=== PATIENT | female | born 1965 | race Caucasian/White ===

== ENCOUNTER → 2022-04-28 09:29 | Outpatient (BNVA) | payer OTHER, SELFPAY | PROVIDERS: PCP Physician Assistant Medical; Visit Provider Hospitalist | DX: R91.1 Solitary pulmonary nodule (principal); J90 Pleural effusion, not elsewhere classified; J18.0 Bronchopneumonia, unspecified organism; J44.9 Chronic obstructive pulmonary disease, unspecified | CPT/HCPCS: 94640 ==

== ENCOUNTER 2022-04-28 10:43 | Outpatient (REF) | payer OTHER, SELFPAY | END 2022-04-28 10:44 | disposition home or self-care (01) | LOC: HO.LNP 10:43 | PROVIDERS: Visit Provider Hospitalist | DX: R91.1 Solitary pulmonary nodule (principal); J18.0 Bronchopneumonia, unspecified organism; J90 Pleural effusion, not elsewhere classified; J44.9 Chronic obstructive pulmonary disease, unspecified | CPT/HCPCS: 87070; 87116; 87205; 87206 ==

== ENCOUNTER 2022-05-10 08:23 | Outpatient (REF) | payer OTHER, SELFPAY ==
--- NOTE | ~2022-05-10 | PE_ITS ---
EXAMINATION: Fluorine-18 FDG PET/CT Scan CLINICAL INDICATION: Initial treatment management. Pulmonary nodule, diagnosis. PROCEDURE: 71 minutes following the intravenous administration of 14.8 mCi of fluorine 18 FDG, images from the base of the skull to the mid thighs were obtained using a combined PET/CT scanner with CT scan based attenuation correction. No oral contrast was administered. No intravenous contrast was administered. Transverse, coronal, sagittal, and volume reconstruction projections were obtained. The patient's blood glucose as determined by a finger stick, was 108 mg/dl immediately prior to injection. Total CT exam dose-length product 581.34 mGy-cm * These CT images were obtained using dose optimization techniques as appropriate, variously including the following: Automated exposure control * Adjustment of mA and/or kV according to patient size (this includes techniques or standardized protocols for targeted exams where dose is matched to indication/reason for exam; i.e. extremities or head) * Use of iterative reconstruction technique COMPARISON: No previous PET/CT scan is available for comparison. The report of a prior CT scan of the chest performed at [facility] dated 04/12/2022 is available but the images from that study are not available for comparison. FINDINGS: (Slice numbers described in this report are numbered superiorly to inferiorly with slice #1 in the head) NECK AND VISUALIZED HEAD: No foci of abnormal FDG activity are noted. The distribution of FDG activity is physiological. There is no cervical lymphadenopathy. THORAX: A 0.5 cm right upper lobe nodule abutting the horizontal fissure is visualized, slice 247/813 period, and this is much too small to be characterized on the FDG PET images. There is some mild scarring or atelectasis in the lung bases bilaterally and a posterior pleural-based 0.5 cm calcified granuloma is visualized, slice 293/813. An additional 1.2 cm groundglass opacity in the right upper lobe described on the report of the 04/12/[address] scan is not definitely apparent on these nondiagnostic CT images, nor are any additional suspicious nodules present. There are no foci of abnormal FDG activity within the chest. There is no pleural or pericardial fluid, or pneumothorax. There is no mediastinal, supraclavicular, or axillary lymphadenopathy. ABDOMEN AND PELVIS: There are no foci of abnormal FDG activity in the abdomen or pelvis. There is mild FDG activity throughout the gastrointestinal tract without a suspicious focal component. There is diverticulosis without evidence of diverticulitis. The hollow viscera are otherwise unremarkable. The liver, gallbladder, spleen, kidneys, adrenal glands and pancreas are unremarkable. The pelvic organs are unremarkable. There is no retroperitoneal, mesenteric, pelvic or inguinal lymphadenopathy. MUSCULOSKELETAL: There is an FDG avid fracture in the lateral aspect of the right sixth rib and minimally increased FDG activity in an adjacent right seventh rib fracture. No other foci of abnormal FDG activity are present in the osseous structures. There are degenerative changes in the spine and disc fusion hardware is present at L4-L5 with no associated abnormal FDG activity. VASCULAR: No significant abnormalities are present. PET/PET CT fusion skull to thigh IMPRESSION: 1. A 0.5 cm right upper lobe nodule abutting the horizontal fissure is too small to be characterized on the FDG PET images. 2. A groundglass opacity described in the report of the 04/12/[address] scan is not definitely visualized on these nondiagnostic CT images. There is no abnormal FDG activity at any site in the lungs. 3. Follow-up of the findings described above with diagnostic CT imaging in 3 months is recommended. 4. Right sixth and seventh rib fractures are visualized. The FDG activity in the right sixth rib fracture indicates it is recent. 5. No additional abnormalities suspicious for metastatic or other malignant lesions are noted.
== END 2022-05-10 08:24 | disposition home or self-care (01) ==
LOC: HO.PET 08:23
PROVIDERS: PCP Physician Assistant Medical; Visit Provider Hospitalist
DX: Z13.89 Encounter for screening for other disorder (principal)

== ENCOUNTER 2022-05-12 08:02 | Outpatient (REF) | payer OTHER, SELFPAY ==
--- NOTE | 2022-05-12 17:27 | PFT_ITS ---
INDICATION: Dyspnea. SPIROMETRY: FEV1 to FVC of 64% with an FEV1 of 1.39 L which is 52% predicted. FVC of 2.16 L, which is 65% predicted. There is significant response to bronchodilators noted. Maximum voluntary ventilation LUNG VOLUMES: Total lung capacity 85% predicted, residual volume 114% predicted. DIFFUSION CAPACITY: DLCO 59% predicted. COMPARISON: None. INTERPRETATION: There is an obstructive ventilatory defect consistent with moderate COPD. There is a significant response to bronchodilators noted. Significant small airway disease. There is moderate decrease in maximum voluntary ventilation secondary to likely deconditioning. Lung volumes with air trapping and a significant decrease in the expiratory residual volume secondary to an elevated BMI. There is also moderate diffusion impairment secondary to likely the emphysematous changes and all the parenchymal condition should be considered. Should also correct for hemoglobin. Clinical correlation warranted. Jay Rebollar MD MR/MODL / [id number]
== END 2022-05-12 08:03 | disposition home or self-care (01) ==
LOC: HO.RESP 08:02
PROVIDERS: Visit Provider Hospitalist
DX: R91.1 Solitary pulmonary nodule (principal)
CPT/HCPCS: 94060; 94727; 94729

== ENCOUNTER → 2022-05-24 14:51 | Outpatient (BNVA) | payer OTHER, SELFPAY | PROVIDERS: PCP Physician Assistant Medical; Visit Provider Hospitalist | DX: Z13.89 Encounter for screening for other disorder (principal) ==

== ENCOUNTER 2023-01-18 07:32 | Outpatient (REF) | payer BC, SELFPAY ==
--- NOTE | ~2023-01-18 | CT_ITS ---
EXAMINATION: CT CHEST WITHOUT CONTRAST CLINICAL INFORMATION: Solitary pulmonary nodule. COMPARISON: PET/CT 04/01/2022. TECHNIQUE: Multidetector volumetric CT imaging of the chest was done. Axial MIP volume rendering provided. Sagittal and coronal reformatted images were obtained. This CT examination was performed using dose optimization techniques as appropriate, variously including the following: *Automated exposure control *Adjustment of mA and/or kV according to patient size (this includes techniques or standardized protocols for targeted exams where dose is matched to indication/reason for exam; i.e. extremities or head) *Use of iterative reconstruction technique DLP: 149 mGy-cm FINDINGS: LUNGS: Some underlying mild emphysematous changes are seen most prominent at the apices. There is mild peribronchial thickening present. A few scattered calcified granulomas are present. Some noncalcified pulmonary nodules are present the largest pleural-based in the right middle lobe measuring 5 mm (5:319). This appears to be present on the nondiagnostic PET/CT although resolution is not adequate for accurate comparisons but appear to measure about the same size (prior 2:218). Salomon images of all lung nodules have been saved. MEDIASTINUM: Heart size normal. The thyroid is unremarkable. No aortic aneurysm. A four-vessel branching pattern of the aortic arch seen with separate origin to the left vertebral artery. No mediastinal or hilar lymphadenopathy. CORONARY ARTERY CALCIFICATION: None visualized on this study. PLEURA: There is no pleural effusion. No pleural mass or thickening. AXILLA: No lymphadenopathy. UPPER ABDOMEN: Unremarkable. OSSEOUS STRUCTURES: Old chronic right-sided rib fractures are again seen. No bony destructive lesions. CT/CT chest wo IV con IMPRESSION: 1. Small pulmonary nodules, the largest measuring 5 mm. Per the 2017 revised Fleischner Society guidelines, no follow-up needed if patient is low-risk (and has no known or suspected primary neoplasm). Non-contrast chest CT can be considered in 12 months if patient is high-risk. 2. Other incidental findings as described above including mild emphysema, peribronchial thickening and old right-sided rib fractures. Fleischner guidelines were followed.
== END 2023-01-18 07:33 | disposition home or self-care (01) ==
LOC: HO.CT 07:32
PROVIDERS: PCP Internal Medicine; Visit Provider Hospitalist
DX: R91.1 Solitary pulmonary nodule (principal)
CPT/HCPCS: 71250